=== PATIENT | male | born 1970 | race Caucasian/White ===

== ENCOUNTER 2024-01-09 18:24 | Emergency (ER) | payer OTHER, SELFPAY ==
[2024-01-09 18:32] VITALS: BP 146/93
[2024-01-09 19:42] VITALS: BMI 29.9
--- NOTE | 2024-01-09 19:55 | ED.GENMED ---
History of Present Illness
General
Chief Complaint: Post Operative Problem(s)
Source: patient
Exam Limitations: none
Time Seen by Provider: 01/09/24 19:31
History of Present Illness
History of Present Illness:
This is a 53 year old male that comes in with c/o nasal bleeding. States that he has septal surgery at [facility] today. States that he has continued to bleed since he got home. States that he called the office and was told to use Afrin but he had
never heard of this so was afraid to use so he was told to come to the ER. States that he has a slight headache but he has not really eaten. Denies any fever, chills, chest pain, SOB, abd pain, nausea, vomiting, diarrhea, dizziness, urinary
burning.
Past History
Past History
ED Past Medical History: Hypercholesterolemia and Other (Diverticulitis)
ED Past Surgical History: Other (Nasal septal surgery)
Social History
Tobacco: Vaping
Alcohol: Occasional
Personal: Single
Living: alone
Review of Systems
Review of Systems
All Other Systems: ROS reviewed and negative except as documented in HPI and ROS
Constitutional: Reports no symptoms; Denies fever or chills
EENT: Reports other (nasal bleeding from the right nostril )
Respiratory: Reports no symptoms; Denies cough or trouble breathing
Cardiac: Reports no symptoms; Denies chest pain
ABD/GI: Reports no symptoms; Denies abdominal pain, nausea, vomiting or diarrhea
: Reports no symptoms; Denies dysuria, frequency or urgency
Musculoskeletal: Reports no symptoms
Skin: Reports no symptoms
Neurological: Reports headache (Slight); Denies dizzy
Psychiatric: Reports no symptoms
Phy Exam
General Physical Exam
General Presentation: well appearing and no apparent distress
General age: appears stated age
General Skin: warm and dry
General Habitus: normal
General Mental: alert
General Hydration: appears well hydrated
ENT Exam
ENT Exam: TM's normal, pharynx normal, neck supple and other (Negative for active bleeding at this time. )
Eye Exam
Eye Exam: EOMI
Cardiovascular Exam
Cardiovascular Exam: regular rate/rhythm, no edema and normal peripheral pulses
Pulmonary Exam
Pulmonary Exam: lungs clear, no respiratory distress, no rales, chest non tender, no crackles, no rhonchi, no wheezing and no cough
Musculoskeletal Exam
Musculoskeletal Exam: full ROM
Skin Exam
Skin Exam: normal color, warm/dry, no rash and no petechia
Psychiatric Exam
Psychiatric Exam: normal mood/affect
Course
Orders/Labs/Results
Orders:
Orders
01/09/24 19:40
Oxymetazoline HCl [Afrin Nasal [place]] 30 sprays .ROUTE .[facility]
01/09/24 19:54
Oxymetazoline HCl [Afrin Nasal [place]] See Dose Instructions NASAL NOW STA
Vital Signs
Initial and Last Documented VS:
Initial Vital Signs
Temp Pulse Resp BP Pulse Ox
98 F 86 18 146/93 98
01/09/24 18:32 01/09/24 18:32 01/09/24 18:32 01/09/24 18:32 01/09/24 18:32
Last Documented Vital Signs
Temp Pulse Resp BP Pulse Ox
98 F 89 18 126/77 94
01/09/24 18:32 01/09/24 20:38 01/09/24 20:38 01/09/24 20:38 01/09/24 20:38
MDM/Problems Addressed
Differential Diagnosis Includes:
Post nasal bleeding
MDM/Problems Addressed:
This is a 53 year old male that comes in with c/o bleeding after nasal septal surgery today. States that he has not stopped bleeding since he got home. Patient was told to use Afrin nasal spray but he was to afraid.
Will have patient use nasal spray here 2 sprays into the left nastril. Will recheck.
Back into see patient. It appears that his bleeding has stopped. Will discharge patient home. Patient is taking the Afrin bottle and explained that he can use 2 sprays every 10-12 hours. Patient to follow up with the surgeon.
Chronic conditions affecting care:
NA
Acute Exacerbation and/or Progression of Chronic Illness:
NA
*Pulse Oximetry
Patient hypoxic: no
*EKG
Interpreted by ED Provider?: NA
Rate: EKG- N/A
*Mortgage Closing Clerk Interpretation
Rate: Mortgage Closing Clerk- N/A
*Critical Care Note
Total Time (30-74mins, 75-104mins- exclusive of procedures): Not Applicable
ED Attending Note
-
Portions of this chart may have been created with voice recognition software.� Occasional wrong word or��sound alike� substitutions may have occurred due to the inherent limitations of voice recognition software.
Discharge Plan
Departure
Patient Disposition: Home (Routine Discharge)
Date of Disposition: 01/09/24
Time of Disposition: 20:46
Patient with high blood pressure during this ER visit?: No
Condition: Good
Covid-19: Not Applicable
Discharge Problem:
Post surgical nasal bleeding
Instructions: Bleeding After Surgery
Referrals:
UNKNOWN - PT DOES,NOT KNOW [Family Provider] -
Activity Restrictions/Additional Instructions:
As discussed, your bleeding appears to have stopped. Please use the Afrin spray 2 sprays to the right nostril every 12 hours. Follow up with the Surgeon as directed. IF YOU HAVE ANY OTHER CONCERNS PLEASE RETURN TO THE EMERGENCY ROOM.
Interventions
Interventions:
*Risk Screen - Suicide Last Done: 01/09/24 19:42
*General Assessment Last Done: 01/09/24 19:42
*Neglect/Abuse Screening Last Done: 01/09/24 19:42
*ED COVID-19 Vaccine History Last Done: 01/09/24 19:42
ED-Skin Assessment Last Done: 01/09/24 19:44
Discharge Date and Time
Print Language: SYRIAC
[2024-01-09] MEDS: AFRIN NASAL SPRAY 2 SPRAYS NASAL (19:59)
[2024-01-09 20:38] VITALS: BP 126/77
== END 2024-01-09 21:08 | disposition home or self-care (01) ==
LOC: EMR 18:24
PROVIDERS: EMERGENCY PHYSICIAN Student in an Organized Health Care Education/Training Program
DX: J95.831 Postprocedural hemorrhage of a respiratory system organ or structure following other procedure (principal); R04.0 Epistaxis; E78.00 Pure hypercholesterolemia, unspecified; F17.290 Nicotine dependence, other tobacco product, uncomplicated
CPT/HCPCS: 99282

== ENCOUNTER 2024-10-06 21:08 | Emergency (ER) | payer OTHER, SELFPAY ==
[2024-10-06 21:11] VITALS: BP 172/95
[2024-10-06 21:32] LABS: Hematocrit 40.6 % (39.0-52.0); Hemoglobin 14.5 g/dL (13.0-18.0); Mean Corp Hgb Conc. 35.7 g/dL (33.0-37.0); Mean Corpuscular Volume 84.1 fL (80.0-94.0); Nucleated Red Blood Cells % 0 % (-); Platelet Count 246 10^3/uL (130-400); Red Cell Dist. Width 13.3 % (11.5-14.5)
[2024-10-06 21:44] LABS: ALT (SGPT) 29 U/L (0-50); AST (SGOT) 18 U/L (17-59); Albumin 4.3 g/dl (3.5-5.0); Alkaline Phosphatase 48 U/L (38-126); Blood Urea Nitrogen 15 mg/dl (9-20); Calcium 9.1 mg/dl (8.4-10.2); Carbon Dioxide 25 mmol/L (22-30); Chloride 108 mmol/L (98-107); Glucose 130 mg/dl (70-99); Potassium 3.9 mmol/L (3.5-5.1); Sodium 140 mmol/L (135-145); Total Protein 7.2 g/dl (6.3-8.2); eGFR > 60.00
--- NOTE | 2024-10-07 01:26 | ED.GENMED ---
History of Present Illness
General
Chief Complaint: Nose Bleed
Source: patient
Exam Limitations: none
Time Seen by Provider: 10/07/24 00:12
Nursing documentation reviewed up to this point in time: agreed with
History of Present Illness
History of Present Illness:
This is a 54-year-old gentleman who underwent turbinectomy procedure 1 week ago. He admits to intermittent bleeding over the past week and was evaluated by his ENT specialist today and underwent cautery procedure to his left nostril. He continues
with intermittent bleeding which has worsened tonight and unrelieved with Afrin. He complains of moderate persistent bleeding from his left nostril as well as feeling of bleeding posteriorly to the back of his throat.
He takes no anticoagulants.
He denies dizziness nor lightheadedness, no chest pain or palpitations. He admits to mild nausea but has had no vomiting. No chest pain or abdominal pain. He does admit to moderate anxiety regarding epistaxis. No trauma nor falls. He has not
had a fever nor chills.
Had been on an antibiotic postoperatively but this has since discontinued.
Past History
Past History
ED Past Medical History: GERD, Hypercholesterolemia, Psychiatric (Anxiety/depression) and Other (Diverticulitis, sinus disease)
ED Past Surgical History: Other (Nasal septal surgery December 2023; turbinectomy/sinus surgery September 2024)
Social History
Tobacco: Vaping
Alcohol: Occasional
Personal: Single
Living: alone
Employment: Employed
Family History
Family History: Other (Noncontributory)
Phy Exam
Physical Exam
Physical Exam:
GENERAL: 54-year-old gentleman appears his stated age, awake and alert, moderately anxious. Frequently dabbing at his nose.
EYE: pupils equal and reactive. anicteric
NECK: Supple, nontender, no meningismus, no significant adenopathy.
ENT: posterior pharynx has mild to moderate blood streaking posteriorly, oral mucosa is moist. TM clear b/l, right nostril is clear. Left nostril cleared of small organized clot. There is mild oozing of bright red blood but no definitive source of
bleeding. There is no active bleeding from the septum nor anterior aspect of the turbinates.
CARDIAC: Regular rate and rhythm. no murmur.
LUNGS: Clear breath sounds bilaterally, no acute respiratory distress, no wheezes/rales/rhonchi
ABDOMEN: Soft, nondistended, without focal tenderness, normoactive BS.
NEUROLOGICAL: Alert and oriented x3, no focal neuro deficits. Gait is davies and steady.
SKIN: Warm and dry, normal color, skin intact. No rash.
MUSCULOSKELETAL: No C/C/E. peripheral pulses are full and equal b/l. No palpable tenderness.
PSYCH: Moderately anxious.
Course
Orders/Labs/Results
Orders:
Orders
10/06/24 21:23
Complete Blood Count/With Diff Urgent
Comprehensive Metabolic Panel Urgent
10/07/24 03:07
Acetaminophen [Tylenol] 1,000 mg PO NOW STA
Lorazepam [Ativan] 1 mg PO NOW STA
Abnormal Lab Results
10/06/24
21:23
Abs Immat Gran (auto) 0.1 H 10^3/uL
(0-0.05)
Absolute Neuts (auto) 6.6 H 10^3/uL
(1.4-6.5)
Immature Gran % 0.8 H %
(0-0.5)
Chloride 108 H mmol/L
(98-107)
Creatinine 0.6 L mg/dL
(0.7-1.3)
Glucose 130 H mg/dl
(70-99)
10/06/24 21:23
10/06/24 21:23
Vital Signs
Initial and Last Documented VS:
Initial Vital Signs
Temp Pulse Resp BP Pulse Ox
98.2 F 91 16 172/95 99
10/06/24 21:11 10/06/24 21:11 10/06/24 21:11 10/06/24 21:11 10/06/24 21:11
Last Documented Vital Signs
Temp Pulse Resp BP Pulse Ox
98.2 F 100 20 146/97 96
10/06/24 21:11 10/07/24 05:00 10/07/24 05:00 10/07/24 05:00 10/07/24 05:00
Procedures
Nosebleed
Drug treatment: Lidocaine and Epinephrine
Treatment: Epistat nasal catheter (Anterior/posterior Epistat nasal catheter) and Merocel packing
Post treatment bleeding: still some oozing and continue to observe
MDM/Problems Addressed
Differential Diagnosis Includes:
Patient presents with left nostril epistaxis status post sinus surgery a week ago.
He remains hemodynamically stable. Labs within normal limits. No evidence of acute blood loss anemia/symptomatic anemia.
He takes no anticoagulants and no prior history of bleeding disorder.
I am unable to identify a definitive source of bleeding. There is no bleeding from the anterior septum nor evidence of bleeding from anterior aspect of the inferior turbinate.
Therefore I have elected to place a Merocel packing sponge.
With Merocel packing sponge in place along with external nasal clip. No evidence of active bleeding. Posterior pharynx has scant organized clot noted superiorly but no active streaming of blood.
Will continue to observe.
*Pulse Oximetry
SaO2: 99
Oxygen Mode of Delivery: Room air
Patient hypoxic: no
*Critical Care Note
Total Time (30-74mins, 75-104mins- exclusive of procedures): Not Applicable
Update Note
Update Note:
03:05
Despite Merosel packing patient continued with scant intermittent oozing posteriorly thus Merosel packing removed. Nasostat anterior/posterior balloon inserted and inflated with air.
Patient tolerated procedure well but continues with significant anxiety. Will give an oral dose of lorazepam and continue to observe.
04:00
Scant blood posterior pharynx but no evidence of active streaming posteriorly. Bilateral anterior nostrils are clear without bleeding.
Patient remains moderately anxious but overall improved.
Will continue to observe.
06:00
Patient resting comfortably.
Posterior pharynx is clear.
There is scant residual blood within the right nostril but no active bleeding. No bleeding from the left nostril and nasostat remains in place.
Patient has been reassured that there is no active bleeding.
Will continue to observe and plan for discharge at 7 AM for patient to follow-up directly to his ENT specialist.
ED Attending Note
-
Portions of this chart may have been created with voice recognition software.� Occasional wrong word or��sound alike� substitutions may have occurred due to the inherent limitations of voice recognition software.
Discharge Plan
Departure
Patient Disposition: Home (Routine Discharge)
Date of Disposition: 10/07/24
Time of Disposition: 06:37
Patient with high blood pressure during this ER visit?: No
Condition: Good
Discharge Problem:
Acute posterior epistaxis, Postsurgical epistaxis
Instructions: Nosebleeds (DC)
Referrals:
UNKNOWN - PT DOES,NOT KNOW [Family Provider]
Activity Restrictions/Additional Instructions:
Follow-up with your ENT specialist this morning for further evaluation.
Interventions
Interventions:
*Risk Screen - Suicide Last Done: 10/06/24 21:11
*General Assessment Last Done: 10/07/24 02:00
*Neglect/Abuse Screening Last Done: 10/06/24 21:11
*ED- Fall Risk Assessment Last Done: 10/07/24 02:00
*ED COVID-19 Vaccine History Last Done: 10/07/24 02:00
*Nursing Disposition Last Done: 10/07/24 06:43
ED-EENT Assessment Last Done: 10/06/24 23:30
Discharge Date and Time
Discharge Date/Time: 10/07/24 06:44
Print Language: BRITISH
[2024-10-07] MEDS: TYLENOL 1000 MG PO (03:38)
[2024-10-07] MEDS: ATIVAN 1 MG PO (03:38)
[2024-10-07 05:00] VITALS: BP 146/97
== END 2024-10-07 06:44 | disposition home or self-care (01) ==
LOC: EMR 21:08
PROVIDERS: Student in an Organized Health Care Education/Training Program; EMERGENCY PHYSICIAN Emergency Medicine
DX: R04.0 Epistaxis (principal); R11.0 Nausea; F41.9 Anxiety disorder, unspecified; E78.00 Pure hypercholesterolemia, unspecified; K21.9 Gastro-esophageal reflux disease without esophagitis; K57.92 Diverticulitis of intestine, part unspecified, without perforation or abscess without bleeding; F17.290 Nicotine dependence, other tobacco product, uncomplicated; Z98.890 Other specified postprocedural states
CPT/HCPCS: 99283; 30901; 80053; 85025

== ENCOUNTER 2024-12-15 06:13 | Day surgery (SDC) | payer OTHER, SELFPAY | END 2024-12-15 09:20 | disposition home or self-care (01) | LOC: GI 06:13 | PROVIDERS: ATTENDING PHYSICIAN Internal Medicine Gastroenterology | DX: K57.32 Diverticulitis of large intestine without perforation or abscess without bleeding (principal); K64.8 Other hemorrhoids; K57.30 Diverticulosis of large intestine without perforation or abscess without bleeding; D12.4 Benign neoplasm of descending colon; K63.89 Other specified diseases of intestine | CPT/HCPCS: 45385; 45380; 88305 ==